=== PATIENT | male | born 1965 | race Caucasian/White ===

== ENCOUNTER 2016-05-18 19:26 | Emergency (ER) | payer MEDICAID, OTHER | END 2016-05-18 20:58 | disposition home or self-care (01) | DX: M25.512 Pain in left shoulder (principal) ==

== ENCOUNTER 2016-08-20 08:00 | Outpatient (CLI) | payer MEDICAID | END 2016-08-20 08:01 | DX: Z13.9 Encounter for screening, unspecified (principal) ==

== ENCOUNTER 2016-09-12 16:10 | Emergency (ER) | payer OTHER, MEDICAID | END 2016-09-12 18:01 | disposition home or self-care (01) | DX: M25.462 Effusion, left knee (principal); M17.12 Unilateral primary osteoarthritis, left knee; F17.200 Nicotine dependence, unspecified, uncomplicated ==

== ENCOUNTER 2017-07-16 07:41 | Outpatient (CLI) | payer OTHER, MEDICAID ==
--- NOTE | 2017-07-16 10:40 | MRI Report ---
EXAM: LEFT ELBOW MRI WITHOUT CONTRAST EXAM DATE: 07/16/2017 08:35 AM. CLINICAL HISTORY: Pain in left elbow. COMPARISON: None. TECHNIQUE: Multiplanar, multisequence T1-weighted and fluid-sensitive sequences of the elbow without contrast. Other: None. FINDINGS: Bones: No fracture or bone lesion. Mild bone marrow edema and reactive cyst at the articular surface of the distal humerus at the junction of the capitellum and trochlea. Small osteophytes throughout th e joint. Postsurgical changes at the radial tuberosity from previous biceps tendon repair. Articular Cartilage: Diffuse shallow partial-thickness cartilage loss. Small region of deep partial f ull-thickness loss at the junction of the capitellum and trochlea. Ligaments: Ulnar collateral ligament is intact. Minimal edema at the humeral insertion of the radial collateral and lateral ulnar collateral ligaments, likely reactive. Annular ligament is unremarkable. Tendons: Common flexor tendon is normal in morphology. Minimal thickening and hyperintense signal at the common extensor tendon origin with minimal partial-thickness undersurface tear. Foci of susceptibility artifact in the region of the thickened distal biceps tendon, consistent with prior postsurgical change. Diffuse distortion of the distal 1.0 cm of the tendon at the expected inse rtion (axial images 27 through 32). A few fibers of the tendon versus aponeurosis may remain intact. Brachialis and triceps tendons are intact. Musculature: Mild fatty atrophy and minimal edema at the biceps myotendinous junction. Minimal edema in the supinator and anconeus muscles. Other: The cubital tunnel and ulnar nerve are unremarkable. Minimal joint effusion. Mild subcutaneous edema of the posterior and lateral aspect of the joint. IMPRESSION: 1. Near complete to complete tear of the biceps tendon at the insertion. A few fibers of the tendon v ersus aponeurosis may remain intact. 2. Minimal edema in the radial collateral and lateral ulnar collateral ligaments, likely reactive. 3. Minimal common extensor tendinopathy with subtle partial-thickness undersurface tear. 4. Mild to moderate degenerative change with small joint effusion. [facility] MUSCULOSKELETAL RADIOLOGY SECTION Referring Provider Line: [phone] SITE ID: [id number]
== END 2017-07-16 07:42 | disposition home or self-care (01) ==
LOC: DI 07:41
PROVIDERS: ATTEND Orthopaedic Surgery
DX: S46.212A Strain of muscle, fascia and tendon of other parts of biceps, left arm, initial encounter (principal); S56.512A Strain of other extensor muscle, fascia and tendon at forearm level, left arm, initial encounter; M19.022 Primary osteoarthritis, left elbow; M25.422 Effusion, left elbow

== ENCOUNTER 2017-10-08 08:59 | Day surgery (SDC) | payer OTHER, MEDICAID ==
[2017-10-08] MEDS ORDERED: LACTATED RINGERS 1,000 ML IV ONE (09:34)
[2017-10-08] MEDS ORDERED: fentaNYL 250 MCG/5 ML VIAL IVP ONE (09:44)
[2017-10-08] MEDS ORDERED: MIDAZOLAM 2 MG/2 ML VIAL IVP ONE (09:44)
[2017-10-08] MEDS ORDERED: PROPOFOL 1000 MG/100 ML IV ONE (10:35)
[2017-10-08] MEDS ORDERED: LIDOCAINE-PF 4% 5 ML AMP SUBQ ONE (10:35)
[2017-10-08 10:58] VITALS: BP 105/63
== END 2017-10-08 09:00 | disposition home or self-care (01) ==
LOC: SDS 08:59
PROVIDERS: ATTEND Surgery
PROC: 0DBL8ZX Excision of Transverse Colon, Via Natural or Artificial Opening Endoscopic, Diagnostic (ICD-10-PCS; 2017-10-08)
PROC: 3E0H8GC Introduction of Other Therapeutic Substance into Lower GI, Via Natural or Artificial Opening Endoscopic (ICD-10-PCS; 2017-10-08)
PROC: 0DBN8ZX Excision of Sigmoid Colon, Via Natural or Artificial Opening Endoscopic, Diagnostic (ICD-10-PCS; principal; 2017-10-08 10:00)
DX: Z12.11 Encounter for screening for malignant neoplasm of colon (principal); Z80.0 Family history of malignant neoplasm of digestive organs; K64.8 Other hemorrhoids; D12.0 Benign neoplasm of cecum; D12.3 Benign neoplasm of transverse colon; K63.5 Polyp of colon; F17.210 Nicotine dependence, cigarettes, uncomplicated
CPT/HCPCS: 45380; 45381; 45385; J3010; J7120; 88305

== ENCOUNTER 2022-02-14 13:34 | Outpatient (CLI) | payer OTHER, MEDICAID ==
[2022-02-14 14:06] VITALS: BP 102/70
--- NOTE | 2022-02-14 14:06 | SLEEP CARE CONSULTATION ---
Information from patient questionnaire entered by Patricia Baeza MA. I have reviewed and concur with the information entered by Patricia Baeza MA. This document represents the service I personally performed and the decisions made by , Luz Bell ARNP. History of Present Illness Service Date and Time: 02/14/2022 1334 Reason for Visit: New patient Chief Complaint: reports: Snoring, Observed pauses in breathing Date of Onset: 20 yrs or more Usual bedtime: 2100 - 2200 Time it takes to fall asleep: 20MIN - 60MIN Snores at night: Yes Observed to quit breathing while asleep: Yes Sleeps alone due to snoring: No Number of times waking at night: 2 - 4 Reasons for waking at night: reports: Bathroom, Other ("NORMAL WAKING UP AFTER REM SLEEP"). denies: Choking, Gasping for air Toss, Turn, or Twitch while sleeping: No Recalls having dreams: Yes Usually gets out of bed at: 0700 - 0800 Feels refreshed in the morning: Yes (most of the time) Morning headache: No Sleepy or fatigued during the day: No Ever fallen asleep while driving: No Takes day naps: No Dreams during day naps: Yes Prior sleep studies: No Additional HPI information: I had the pleasure of seeing KESHIA GALVAN today regarding the possibility of him having a sleep disorder. His current complaints are snoring and observed pauses in breathing. - Parasomnia Symptoms Ever been unable to move upon waking from sleep: Yes (rare) Walks in sleep: No Talks in sleep: Yes (per girlfriend) Ever acted out dreams in sleep: No Ever felt weak in the knees when startled or emotional: No Bothered by creepy, crawly, restless sensations in legs: No Problems with memory or concentration: Yes (concentration, focus is problem) Subjective Initial [place] Sleepiness Scale score: 7 (02/2022) Past Medical History Past Medical History: reports: Arthritis, Depression, Attention deficit, Other (2 hip replacements; menicus issues both knees) Social History The patient's occupation is a [employer]. Patient is Single and lives in . Have you smoked in the past 12 months: Yes Cigarettes per day (20/pack): 5 Years of smokin Smoking Pack Years: 7.8 Alcohol use: Yes Alcohol amount and frequency: 1 -2 DRINKS A DAY, 2 - 3 TIMES A MONTH Caffeine use: Yes Caffeine amount and frequency: 1 CUP DAILY Family History Family history of sleep disordered breathing: Yes Family Hx Sleep Apnea: Father: Snoring, Sleep apnea - Untreated Allergies and Home Medications Drug allergies reviewed: Yes (NKDA) Home medication list reviewed: Yes (no daily medications) Allergy and home medication list: Allergies No Known Drug Allergies Allergy (Verified 10/08/17 09:35) Review of Systems Weight gain over past 5 years: 20 Weight loss over past 5 years: 20 Psychiatric: reports: depression Ear/Nose/Throat: reports: sinus problems (deviated septum was repaired 12 yrs ago), tonsillectomy, wisdom teeth removed Musculoskeletal: reports: joint pain, back pain Immunologic: reports: sneezing Physical Exam Vital signs obtained and entered by: DIO GARDNER Blood Pressure: 102/70 Cuff size: regular Heart Rate: 69 O2 Saturation: 96 Height: 6 ft 0.5 in Weight: 220 lb Body Mass Index: 29.4 BMI Classification: Overweight Neck circumference: 16.5 Mouth and throat: narrow oropharynx Soft palate: long Hard palate: normal Uvula: normal Uvula visualization: 25% Mallampati Class III Tongue: enlarged in size with teeth newman on lateral edges Tonsils: absent bilaterally Neck: normal w/o lymphadenopathy or thyromegaly Heart: regular rate and rhythm Lungs: clear bilaterally Impression and Plan 1. Suspected Obstructive Sleep Apnea-Hypopnea Syndrome, as suggested by a history of loud and irregular snoring, observed cessation of breath while asleep and cognitive impairment. Narrow oropharynx and obesity are common predisposing factors for obstructive sleep apnea-hypopnea syndrome. I recommend proceeding to polysomnography to confirm the diagnosis and to assess severity. If the patient has significant sleep disordered breathing, a manual CPAP titration study will also be performed to find the optimal treatment pressure. I informed the patient of what the sleep studies involve and after some discussion, obtained agreement to proceed. The pathophysiology of obstructive sleep apnea-hypopnea syndrome was discussed with the patient and health risks of cardiovascular and cerebrovascular disease if not treated. 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 Patient agreed to plan. * Schedule polysomnography * Avoid long distance driving or driving when feeling sleepy. * Avoid alcohol, sedative and muscle relaxant around bedtime. * Attempt to lose weight. * Review instructions provided by trained office staff on how to prepare for the sleep study. * Return for follow-up after sleep study completed. Counseling Topics: Weight loss health impact Visit Type: In Office Time Spent with Patient (minutes): 32 Provider Statement: I spent 100% of the Face to Face Visit with the patient with greater than 50% spent counseling the patient and coordination of care.
== END 2022-02-14 13:35 | disposition home or self-care (01) ==
LOC: SC 13:34
PROVIDERS: ATTEND Nurse Practitioner Family
DX: R06.83 Snoring (principal); R06.81 Apnea, not elsewhere classified; F32.A Depression, unspecified; E66.3 Overweight; Z68.29 Body mass index [BMI] 29.0-29.9, adult; F17.210 Nicotine dependence, cigarettes, uncomplicated
CPT/HCPCS: 99203; 99212

== ENCOUNTER 2022-03-18 19:36 | Outpatient (CLI) | payer OTHER, MEDICAID | END 2022-03-18 19:37 | disposition home or self-care (01) | LOC: SC 19:36 | PROVIDERS: ATTEND Nurse Practitioner Family | DX: G47.33 Obstructive sleep apnea (adult) (pediatric) (principal); G47.61 Periodic limb movement disorder | CPT/HCPCS: 95810 ==

== ENCOUNTER 2022-03-22 14:48 | Outpatient (CLI) | payer OTHER, MEDICAID ==
[2022-03-22 15:26] VITALS: BP 118/76
--- NOTE | 2022-03-22 15:26 | SLEEP CARE CONSULTATION ---
Information from patient questionnaire entered by Katie Grossman. I have reviewed and concur with the information entered by Katie Grossman. This document represents the service I personally performed and the decisions made by , Luz Bell ARNP. History of Present Illness Service Date and Time: 03/22/2022 1448 Initial [place] Sleepiness Scale score: 7 (02/2022) Current [place] Sleepiness Scale score: 5 (03/22/2022) Additional HPI information: KESHIA GALVAN returns for follow up and results of the recently performed polysomnography. I explained the pathophysiology behind obstructive sleep apnea. We then spent quite a bit of time discussing different treatment options. For mild obstructive sleep apnea, surgery and oral appliance are alternatives to nasal CPAP therapy but in moderate or severe cases, nasal CPAP is the most effective and reliable treatment. Because apnea is primarily in supine position, then positional management therapy could be effective. Methods discussed such as positioning with pillows to prevent supine sleep. I reviewed the impact of weight changes on sleep apnea and strongly recommended losing weight. Patient counseled not drink alcohol less than 4 hours before bedtime as it can increase snoring and apnea. Patient was cautioned about risks of drowsy driving until sleepiness symptoms resolve. Patient denies drowsy driving. Sleep Study - Results Type of Sleep Study: Polysomnography (COMPLETED 03/18/2022) Prior sleep studies: No Polysomnography/Home Sleep Study results: IMPRESSION: The quality of the study is good. The patient had normal sleep efficiency. The sleep architecture was abnormal for sleep fragmentation and lack of slow wave sleep (N3). Respiratory monitoring showed mild obstructive sleep apnea-hypopnea (AHI = 6.5) associated with frequent arousals, oxyhemoglobin desaturation and mild hypoxia ([place] oxygen saturation of 85%). The respiratory events occurred almost exclusively during supine sleep (supine AHI = 12.0; non-supine = 4.26). Snore was moderate to loud in intensity. There was moderate periodic leg movement of sleep not contributing to the sleep fragmentation. Cardiac rhythm was normal sinus rhythm without significant arrhythmia. No abnormal behavior (parasomnia) observed during the night. Allergies and Home Medications Drug allergies reviewed: Yes (NKDA) Home medication list reviewed: Yes (no changes) Review of Systems Review of systems same as previous: Yes (no changes) Physical Exam Vital signs obtained and entered by: KATIE Roger MA Blood Pressure: 118/76 (LEFT ARM) Cuff size: regular Heart Rate: 73 O2 Saturation: 97 Height: 6 ft 0.5 in Weight: 216 lb 6.4 oz Body Mass Index: 28.9 BMI Classification: Overweight Impression and Plan 1. Obstructive Sleep Apnea-Hypopnea Syndrome, mild, with lowest oxygen saturation of 86%. Obviously this is the cause of the patients symptoms of unrefreshed sleep, and excessive daytime sleepiness. Positive pressure therapy could benefit depression and attention deficit. Patient would like to think about the diagnosis and choice of therapy but in the meantime will try to avoid sleeping on his back. Since patients apnea is primarily in supine position, patient advised to try positional therapy and agreed with plan. He is also advised to lose weight as this will reduce snoring and apnea. Follow up is scheduled for one month to check effectiveness and if further evaluation indicated. 2. Periodic limb movement, moderate, that did not fragment patients sleep. Periodic limb movement of sleep (PLMS) is characterized by episodes of repetitive limb movements that occur during sleep and usually involve the lower limbs. The etiology is unknown. Caffeine can aggravate PLMS and should be avoided. Sleep hygiene methods can also improve sleep as well as lifestyle changes such as regular exercise. Patient was advised that no treatment is needed at this time. If symptoms increase, then further evaluation is indicated. 3. Overweight, unspecified. Currently patients BMI is 28.9. Patient is currently trying to lose weight. Obesity increases the risk of apnea, CPAP pressure requirements and overall health risks especially cardiovascular and diabetes. Thus patient is advised to continue to try to lose weight. * Positional therapy while he thinks about choices of therapy. * Continue to try to lose weight. * Avoid alcohol consumption near bedtime. * Avoid supine sleep * The patient is again cautioned about driving until sleepiness completely resolves. * Return in 1-2 months. I will assess response to therapy. * Counseling Topics: Sleeping position, Weight loss health impact Visit Type: In Office Time Spent with Patient (minutes): 22 Provider Statement: I spent 100% of the Face to Face Visit with the patient with greater than 50% spent counseling the patient and coordination of care.
== END 2022-03-22 14:49 | disposition home or self-care (01) ==
LOC: SC 14:48
PROVIDERS: ATTEND Nurse Practitioner Family
DX: G47.33 Obstructive sleep apnea (adult) (pediatric) (principal); G47.61 Periodic limb movement disorder; E66.3 Overweight; Z68.28 Body mass index [BMI] 28.0-28.9, adult
CPT/HCPCS: 99212; 99213

== ENCOUNTER 2022-05-25 13:07 | Outpatient (CLI) | payer OTHER, MEDICAID ==
--- NOTE | 2022-05-25 13:39 | SLEEP CARE CONSULTATION ---
Information from patient questionnaire entered by Katie Grossman. I have reviewed and concur with the information entered by Katie Grossman. This document represents the service I personally performed and the decisions made by , Luz Bell ARNP. History of Present Illness Service Date and Time: 05/25/2022 1307 Previous diagnosis: Mild, Obstructive Sleep Apnea-Hypopnea Syndrome AHI: 6.5 (in 2021) Reason for follow up: other (TWO MONTH F/U FOR POSITIONAL THERAPY ) Accompanied by: Partner (Girlfriend) Prior sleep studies: No HPI additional information: KESHIA GALVAN III was diagnosed to have mild, AHI 6.5, obstructive sleep apnea- hypopnea syndrome and returned today for Positional therapy two month follow-up. Sleep Study - Results Prior sleep studies: No Subjective Initial [place] Sleepiness Scale score: 7 (02/2022) Current [place] Sleepiness Scale score: 5 (05/25/22) Allergies and Home Medications Drug allergies reviewed: Yes (NKDA) Home medication list reviewed: Yes (no changes) Review of Systems Review of systems same as previous: Yes (no changes) Physical Exam Vital signs obtained and entered by: KATIE Roger MA Blood Pressure: 128/76 (LEFT ARM) Cuff size: regular Heart Rate: 72 O2 Saturation: 95 Height: 6 ft 0.5 in Weight: 215 lb 12.8 oz Body Mass Index: 28.8 BMI Classification: Overweight Impression and Plan 1. Obstructive Sleep Apnea-Hypopnea Syndrome, mild. Using positional therapy, but patient is not always able to stay off back. He does not want to use a positional belt as he feels it would be disruptive. After some discussion, He would like to try oral appliance. A prescription for an oral appliance to treat their apnea was completed at his visit and was give to patient. Patient will call once he has his oral appliance for follow up to see if appliance has reduced symptoms. If so, another polysomnography will be ordered with use of the oral appliance to check efficacy in reducing apnea. Until patient is able to use the oral appliance, positional therapy is advised to avoid supine sleep because apnea is more severe supine. He voiced understanding. Patient's apnea severity and rationale for treatment to reduce apnea, improve sleep quality and reduce cardiovascular and cerebrovascular events was reviewed. 2. Overweight, unspecified. Currently patients BMI is 28.8. Obesity increases the risk of apnea, CPAP pressure requirements and overall health risks especially cardiovascular and diabetes. Thus patient is advised to lose weight. -Oral appliance to treat SONIA, he will continue positional therapy until able to use oral appliance -Attempt to lose weight -Call this office if any problems -Return for follow up one month after obtaining oral device, or sooner if concerns arise Counseling Topics: Sleeping position, Weight loss health impact Visit Type: In Office Other Participants: Spouse/Significant Other Time Spent with Patient (minutes): 20 Provider Statement: I spent 100% of the Face to Face Visit with the patient with greater than 50% spent counseling the patient and coordination of care.
[2022-05-25 13:40] VITALS: BP 128/76
== END 2022-05-25 13:08 | disposition home or self-care (01) ==
LOC: SC 13:07
PROVIDERS: ATTEND Nurse Practitioner Family
DX: G47.33 Obstructive sleep apnea (adult) (pediatric) (principal); E66.3 Overweight; Z68.28 Body mass index [BMI] 28.0-28.9, adult
CPT/HCPCS: 99212; 99213

== ENCOUNTER 2022-12-12 07:23 | Day surgery (SDC) | payer OTHER, MEDICAID ==
[2022-12-12] MEDS ORDERED: LACTATED RINGERS 1,000 ML IV ONE ×2 (07:36→09:08)
[2022-12-12] MEDS ORDERED: PROPOFOL 500 MG/50 ML 500 MG/50 ML VIAL ONE (08:23)
--- NOTE | 2022-12-12 08:53 | ANESTHESIA ---
Pre-Anesthesia VS, & Labs - Diagnosis Screening exam, history of polyps - Procedure colonoscopy Vital Signs: Temp Pulse Resp BP Pulse Ox O2 Flow Rate 36.2 C L 61 11 L 147/88 H 95 12/12/22 07:32 12/12/22 07:32 12/12/22 07:32 12/12/22 07:32 12/12/22 07:32 Height: 6 ft 1 in Weight (kg): 91.7 kg Body Mass Index: 26.6 BMI Classification: Overweight - NPO >8 hours Home Medications and Allergies No Known Home Medications 10/08/17 Allergies/Adverse Reactions: Allergies Allergy/AdvReac Type Severity Reaction Status Date / Time No Known Drug Allergies Allergy Verified 05/25/22 13:20 Anes History & Medical History - Anesthetic History Anesthesia Complications: reports: No previous complications - Medical History Cardiovascular: reports: None Pulmonary: reports: Sleep apnea, CPAP use Gastrointestinal: reports: None Urinary: reports: None Neuro: reports: None Musculoskeletal: reports: Osteoarthritis, Chronic back pain, Other Endocrine/Autoimmune: reports: None Blood Disorders: reports: None Skin: reports: None Smoking Status: Current some day smoker Psychosocial: reports: Opioid (occasional for back pain) History of Cancer?: No - Surgical History Eyes Ears Nose Throat (EENT): reports: Tonsil/Adenoidectomy, Other Orthopedic: reports: Hip replacement, Arthroscopic surgery, Other Exam General: Alert, Oriented x3, Cooperative, No acute distress Dental: WNL Mouth Openin Fingerbreadth Neck Mobility: Normal Mallampati classification: II Thyromental Distance: 4-6 cm Mental/Cognitive Status: Alert/Oriented X3, Normal for patient Plan Anesthesia Type: General, Total IV Consent for Procedure(s) Verified and Reviewed: Yes Code Status: Attempt Resuscitation ASA classification: 2-Mild systemic disease Is this case an emergency?: No
[2022-12-12] MEDS ORDERED: MIDAZOLAM 2 MG/2 ML VIAL ONE (08:58)
[2022-12-12 09:36] VITALS: BP 107/79; O2SAT 98
--- NOTE | 2022-12-12 16:35 | ANESTHESIA POST OP EVALUATION ---
Anesthesia Post Eval - Post Anesthesia Eval Vitals: Last Vital Signs Temp 36.1 C L 12/12/22 09:16 Pulse 69 12/12/22 09:29 Resp 16 12/12/22 09:29 BP 107/79 12/12/22 09:29 Pulse Ox 98 12/12/22 09:29 O2 Flow Rate CV Function Including HR & BP: Stable Pain Control: Satisfactory Nausea & Vomiting: Negative Mental Status: Baseline Respiratory Status: Airway Patent Hydration Status: Satisfactory Anesthesia Complications: None
== END 2022-12-12 07:24 | disposition home or self-care (01) ==
LOC: SDS 07:23
PROVIDERS: ATTEND Surgery
PROC: 0DBL8ZZ Excision of Transverse Colon, Via Natural or Artificial Opening Endoscopic (ICD-10-PCS; 2022-12-12)
PROC: 0DBN8ZZ Excision of Sigmoid Colon, Via Natural or Artificial Opening Endoscopic (ICD-10-PCS; 2022-12-12)
PROC: 0DBP8ZZ Excision of Rectum, Via Natural or Artificial Opening Endoscopic (ICD-10-PCS; principal; 2022-12-12 08:30)
DX: Z12.11 Encounter for screening for malignant neoplasm of colon (principal); K63.5 Polyp of colon; K62.1 Rectal polyp; K57.30 Diverticulosis of large intestine without perforation or abscess without bleeding; F17.200 Nicotine dependence, unspecified, uncomplicated; G47.30 Sleep apnea, unspecified; Z80.0 Family history of malignant neoplasm of digestive organs
CPT/HCPCS: 45380; J7120